=== PATIENT | male | born 1975 | race African-American/Black ===

== ENCOUNTER 2017-01-03 14:28 | Inpatient (IN) | payer OTHER ==
--- NOTE | ~2017-01-03 | PA ---
Unit #: [id number] #: [id number] Patient: JONNA GUILLERMO [id number] [facility] [address] [place] [address] [id number] I MR#: [id number] NAME: JONNA GUILLERMO. ROOM: P183 Age: 41 Sex: M Admission Date: 01/03/2017 : 1975 Date of Assessment: 01/03/2017 Attending Physician: Tee Grant M.D. Admitting Physician: Tee Grant M.D. Primary Care Physician: Generic Doctor Not In System PSYCHIATRIC ASSESSMENT DATE OF SERVICE 01/03/2017. IDENTIFYING DATA Mr. Guillermo is a 41-year-old single male, who is a resident of [place], [place], and was self-referred to the hospital on a voluntary basis. CHIEF COMPLAINT "I'm in a downhill spiral and I'm being self-destructive." HISTORY OF PRESENT ILLNESS Mr. Guillermo is a 41-year-old male, who was self-referred to the hospital reporting increasing depression, anxiety, unstable mood, and being paranoid and that he just got out of the detention in July and that his mood has been "fucked up." He reports that he relapsed on drugs in 10/2016 and states 2 weeks ago, he attempted to overdose on heroin, cocaine, and pills and stated that he is not feeling suicidal, but would not care if he in his sleep. He does report increasing depression, anxiety, agitation, irritability, poor frustration tolerance, feelings of hopelessness and helplessness, and suicidal ideations. SUBSTANCE ABUSE HISTORY The patient reports a history of alcohol, cannabis, cocaine, acid, and opioid abuse, and currently, he reports cocaine has been his drug of choice as he has used that yesterday and also has been using opioids, with the last use being a couple of weeks ago. PAST PSYCHIATRIC HISTORY The patient has had outpatient psychiatric treatment in the past, and review of the medical records indicate that currently he is on a combination of Seroquel and prazosin, but is not seeing a psychiatrist and is not taking any psychotropic medications. PAST MEDICAL HISTORY No acute or chronic medical illness. ALLERGIES No known medication allergies. PERSONAL AND SOCIAL HISTORY A 41-year-old male, who reports that he lives at home Unit #: [id number] #: [id number] Patient: JONNA GUILLERMO with his fiance and his two sons and has a fairly decent social support system. MENTAL STATUS EXAMINATION Young male, who was casually dressed with a fair personal hygiene, appears to be in no acute distress or discomfort. He was awake and alert on interaction with intact orientation to time, place, and person. His mood was anxious and depressed with a congruent affect. His speech was slow and restricted in content. His thought processes were disorganized with some looseness of associations and paranoid ideations. His insight and judgment remain significantly impaired. DIAGNOSTIC IMPRESSION Psychiatric: Major depressive disorder, recurrent, moderate, without psychotic features; opioid abuse, moderate; and cocaine abuse, moderate. Medical: None. Stressors: Moderate psychosocial stressors. TREATMENT PLAN 1. The patient has presented with a history of substance abuse and mood disorder and has been decompensating and will need inpatient hospitalization for detoxification, safety, and stabilization. We will start him on detox protocol. We will closely monitor his response and make further adjustments as needed. 2. Supportive therapy was provided to the patient. 3. Safe, structured, and nourishing environment will be provided. ESTIMATED LENGTH OF STAY 5 to 7 days. ABILITY TO HELP SELF Limited. WILLINGNESS TO HELP SELF The patient appears to be willing to help self. STRENGTHS 1. Communicative. 2. Cooperative. PROBLEMS 1. Chronic dysphoric symptoms. 2. Chronic chemical dependency. 3. Poor social support system. DISCHARGE CRITERIA This will be contingent upon the patient's ability to show resolution of his depression and anxiety and his ability to go through detox without having any significant withdrawal symptoms and his ability to stay safe to others, particularly after discharge from the hospital. Dictated by... Robert Gorman/britton TD: 01/04/2017 13:17 Unit #: [id number] #: [id number] Patient: JONNA GUILLERMO JOB #: [id number] PSYCHIATRIC ASSESSMENT X Tee Grant MD PSYCHIATRIC ASSESSMENT
--- NOTE | ~2017-01-03 | PN ---
Unit #: [id number] #: [id number] Patient: JONNA GUILLERMO [id number] [facility] [address] [place] [address] [id number] I MR#: [id number] NAME: JONNA GUILLERMO. ROOM: P183 Age: 41 Sex: M Admission Date: 01/03/2017 : 1975 Attending Physician: Tee Garnt M.D. Admitting Physician: Tee Grant M.D. Primary Care Physician: Generic Doctor Not In System [facility] PROGRESS NOTES DATE OF SERVICE: 01/06/2017 SUBJECTIVE Mr. Guillermo is a 31-year-old male who was seen today and chart was reviewed, and case was discussed with the staff. He has been anxious, withdrawn, though reports doing much better and has been reporting improvement in his depressive symptoms. Meanwhile, he has been cooperative with treatment recommendations and has been taking the medications and tolerating them fairly well. MENTAL STATUS EXAMINATION Young male who was casually dressed with fair personal hygiene, appears to be in no acute distress or discomfort. He was awake and alert on interaction with intact orientation. His mood was anxious with a congruent affect. He denies any suicidal or homicidal ideation, and also denies any auditory or visual hallucinations. His insight and judgment remain slightly impaired. TREATMENT PLAN 1. We will continue him on his current medications and treatment protocol. We will monitor his response to medication and make further adjustments as needed. 2. We will continue to follow up. Dictated by... Robert Gorman/britton TD: 01/07/2017 01:18 JOB #: [id number] Unit #: [id number] #: [id number] Patient: JONNA GUILLERMO [facility] PROGRESS NOTES Page 1 of 1 X Tee Grant MD PROGRESS NOTE
--- NOTE | ~2017-01-03 | DS ---
Unit #: [id number] #: [id number] Patient: JONNA GUILLERMO [id number] [facility] [address] [place] [address] [id number] I MR#: [id number] NAME: JONNA GUILLERMO. ROOM: P183 Age: 41 Sex: M Admission Date: 01/03/2017 : 1975 Discharge Date: 01/07/2017 Attending Physician: Tee Grant M.D. Primary Care Physician: Generic Doctor Not In System DISCHARGE SUMMARY JOB NOTE: VERIFY ADMIT AND DISCHARGE DATE. IDENTIFYING DATA Mr. Guillermo is a 41-year-old male, who is a resident of [place], [place], and was self-referred to the hospital on a voluntary basis. DISCHARGE DIAGNOSES Psychiatric: Major depressive disorder, recurrent, moderate, without psychotic features; opioid dependence, moderate and acute withdrawals; cocaine dependence, moderate. Medical: None. Stressors: Moderate psychosocial stressors. HISTORY OF PRESENT ILLNESS Please see initial psychiatric evaluation for details. PAST PSYCHIATRIC HISTORY Please see initial psychiatric evaluation for details. PAST MEDICAL HISTORY Please see initial psychiatric evaluation for details. HOSPITAL COURSE The patient was admitted to the adult psychiatric unit at [facility] and was oriented to the hospital environment. Routine p.r.n. medications were initiated, and he was started back on his home medications and medications were adjusted and Effexor and Seroquel were started to help with depression and anxiety, and opioid detox protocol was initiated as well and he was closely monitored. He was taking the medications regularly and was tolerating them fairly well and was able to show a decent and therapeutic response and as such, it was decided that he will to be discharged home and will continue treatment on an outpatient basis. DISCHARGE MEDICATIONS Effexor XR 75 mg in the morning, and Seroquel 200 mg at bedtime for mood. DISCHARGE CONDITION Stable. PROGNOSIS Fair. Unit #: [id number] #: [id number] Patient: JONNA GUILLERMO Dictated by... Tee Grant M.D. IAA/modl TD: 01/07/2017 23:09 JOB #: [id number] DISCHARGE SUMMARY Page 1 of 1 X Tee Grant MD DISCHARGE SUMMARY
--- NOTE | ~2017-01-03 | HP ---
Unit #: [id number] #: [id number] Patient: JONNA PATINO [id number] [place] [address] [id number] MR#: [id number] NAME: JONNA PATINO. ROOM: 83 Age: 41 Sex: M Admission Date: 01/03/2017 : 1975 Attending Physician: Tee Grant M.D. Admitting Physician: Tee Grant M.D. Primary Care Physician: Generic Doctor Not In System HISTORY AND PHYSICAL HISTORY OF PRESENT ILLNESS The patient is a 41-year-old male who states he is here due to depression, anxiety and suicidal ideation. PAST MEDICAL HISTORY Significant for hypertension and hyperlipidemia. PAST SURGICAL HISTORY None. ALLERGIES Patient states none. SOCIAL HISTORY Positive for smoking, alcohol and drugs. FAMILY HISTORY Noncontributory. REVIEW OF SYSTEMS CONSTITUTIONAL: No fever or chills. HEENT: Denies any sore throat, ear pain or runny nose. CARDIOVASCULAR: Denies chest pain, irregular heart rhythm or palpitations. CHEST: Denies shortness of breath or cough. No hemoptysis. GASTROINTESTINAL: Denies nausea, vomiting, diarrhea or chronic constipation. ENDOCRINE: Denies history of increased thirst or urination. No recent significant weight loss or gain. GENITOURINARY: Denies dysuria, frequency, or hematuria. SKIN: Denies any rashes. HEMATOLOGIC: Denies history of increased bleeding or bruising. MUSCULOSKELETAL: Denies any hot, swollen joints. No generalized muscle pain. NEUROLOGIC: Denies problems with vision or speech. No frequent, severe headaches. No numbness, tingling or weakness in any extremities. Denies loss of bladder or bowel control. CURRENT MEDICATIONS 1. Prazosin 1 mg p.o. q.h.s. 2. Seroquel XR 150 mg p.o. daily. PHYSICAL EXAMINATION GENERAL: Alert, oriented, in no acute distress. Unit #: [id number] #: [id number] Patient: JONNA PATINO VITAL SIGNS: Blood pressure 141/87, heart rate 79. Temperature and respirations not available. HEIGHT: Not available. WEIGHT: Not available. SKIN: Warm and dry without rash or lesion. Tattoos to the right deltoid and right and left chest. Scar to the left upper arm. Tattoo to the thoracic area. roman to the right hand. HEENT: Normocephalic. TMs not viewed. Oral and nasal passages clear. Conjunctivae clear. PERRLA. EOMs intact. NECK: Supple without lymphadenopathy or thyromegaly. HEART: Regular rate and rhythm without murmur. LUNGS: Clear. ABDOMEN: Soft, nontender, without masses or hepatosplenomegaly. : Not done. EXTREMITIES: No evidence of cyanosis, clubbing or edema. Moves all without focal deficit. NEUROLOGICAL: Grossly within normal limits. Cranial Nerves: II: Visual kearns are intact. III, IV AND : Extraocular movements are intact. Pupils are equal, round and reactive to light. V: Facial sensation is grossly normal. VII: Facial movements and expression are normal. VIII: Auditory acuity grossly intact. IX, X: Uvula is midline. Phonation is normal. XI: Patient shrugs shoulders and turns head normally. XII: Tongue protrudes in the midline. Sensory and Motor Function: Sensory and motor sensation is grossly normal. Motor: moves all extremities well. Coordination: Gait is normal. Deep Tendon Reflexes: Intact. IMPRESSION Psychiatric admission. RECOMMENDATIONS PSYCHIATRIC: Per psychiatrist. MEDICAL: No contraindication to participate in facility's activities. MEDICAL PROGNOSIS Good. Dictated by... Latonya Khoury/krys TD: 01/04/2017 18:09 JOB #: [id number] Unit #: [id number] #: [id number] Patient: JONNA PATINO HISTORY AND PHYSICAL X Julia Aguilar APR X HISTORY AND PHYSICAL
--- NOTE | ~2017-01-03 | PN ---
Unit #: [id number] #: [id number] Patient: JONNA GUILLERMO [id number] [facility] [address] [place] [address] [id number] I MR#: [id number] NAME: JONNA GUILLERMO. ROOM: P183 Age: 41 Sex: M Admission Date: 01/03/2017 : 1975 Attending Physician: Tee Grant M.D. Admitting Physician: Tee Grant M.D. Primary Care Physician: Generic Doctor Not In System [facility] PROGRESS NOTES DATE OF SERVICE: 01/04/2017 SUBJECTIVE Mr. Guillermo is a 41-year-old male, who was seen today and chart was reviewed and the case was discussed with the staff. He has been anxious, withdrawn, and rather seclusive to himself. Meanwhile, he has been exhibiting persistent depressive symptoms, though has not shown any agitation or aggression. MENTAL STATUS EXAMINATION Young male, who was casually dressed with a fair personal hygiene, appears to be in no acute distress or discomfort. He was awake and alert on interaction with intact orientation. His mood was anxious and depressed with a congruent affect. His speech was slow and goal directed. He reports having suicidal ideation, but denies any homicidal ideation. His insight and judgment remain slightly impaired. TREATMENT PLAN 1. We will continue him on his current medications and treatment protocol. We will make recommendation and adjustment in his treatment planning. 2. We will continue to follow up. Dictated by... Robert Gorman/britton TD: 01/04/2017 17:01 JOB #: [id number] [facility] PROGRESS NOTES X Tee Grant MD PROGRESS NOTE
--- NOTE | ~2017-01-03 | PN ---
Unit #: [id number] #: [id number] Patient: JONNA GUILLERMO [id number] [facility] [address] [place] [address] [id number] I MR#: [id number] NAME: JONNA GUILLERMO. ROOM: P183 Age: 41 Sex: M Admission Date: 01/03/2017 : 1975 Attending Physician: Tee Grant M.D. Admitting Physician: Tee Grant M.D. Primary Care Physician: Generic Doctor Not In System [facility] PROGRESS NOTES DATE OF SERVICE: 01/05/2017 SUBJECTIVE Mr. Guillermo is a 31-year-old male, who was seen today and chart was reviewed, and case was discussed with the staff. He has been anxious, withdrawn, though has not shown any agitation or irritability. He has been cooperative with treatment recommendations and has been taking the medications and tolerating them fairly well. MENTAL STATUS EXAMINATION Young male, who was casually dressed with fair personal hygiene, appears to be in no acute distress or discomfort. He was awake and alert on interaction with intact orientation. His mood was anxious with a congruent affect. He denies any suicidal or homicidal ideations. His insight and judgment remain slightly impaired. TREATMENT PLAN 1. We will continue him on his current medications and treatment protocol. We will monitor his response and make further adjustments as needed. 2. We will continue to follow up. Dictated by... Robert Gorman/britton TD: 01/06/2017 05:57 JOB #: [id number] [facility] PROGRESS NOTES X Tee Grant MD PROGRESS NOTE
[2017-01-06 09:35] LABS: URINE APPEARANCE CLEAR; URINE BILIRUBIN NEG (NEG); URINE BLOOD NEG (NEG); URINE COLOR YELLOW; URINE GLUCOSE NEG (NEG); URINE KETONE NEG (NEG); URINE LEUKOCYTE ESTERASE NEG (NEG); URINE NITRATE NEG (NEG); URINE PROTEIN NEG (NEG); URINE SPECIFIC GRAVITY 1.011 (1.003-1.035); URINE UROBILINOGEN 0.2 MG/DL (NEG)
[2017-01-06 09:52] LABS: AMPHETAMINE NEG (NEG); BARBITURATES NEG (NEG); BENZODIAZEPINES NEG (NEG); COCAINE POS (NEG); MARIJUANA NEG (NEG); OPIATES NEG (NEG); TRICYCLIC ANTIDEPRESSANTS POS (NEG); U METHADONE NEG (NEG)
== END 2017-01-07 10:50 | disposition home or self-care (01) | DRG 885 ==
LOC: P1E 14:28
PROVIDERS: Psychiatry & Neurology Psychiatry
PROC: HZ2ZZZZ Detoxification Services for Substance Abuse Treatment (ICD-10-PCS; principal; 2017-01-03)
DX: F33.1 Major depressive disorder, recurrent, moderate (principal); I10 Essential (primary) hypertension; F11.23 Opioid dependence with withdrawal; F14.10 Cocaine abuse, uncomplicated; E78.5 Hyperlipidemia, unspecified
CPT/HCPCS: 80307; 81003

== ENCOUNTER 2017-01-17 19:26 | Inpatient (IN) | payer OTHER ==
--- NOTE | ~2017-01-17 | DS ---
Unit #: [id number] #: [id number] Patient: JONNA GUILLERMO [id number] [facility] [address] [place] [address] [id number] I MR#: [id number] NAME: JONNA GUILLERMO ROOM: 86 Age: 41 Sex: M Admission Date: 01/17/2017 : 1975 Discharge Date: 01/23/2017 Attending Physician: Tee Grant M.D. DISCHARGE SUMMARY IDENTIFYING DATA Mr. Guillermo is a 41-year-old male who is known to us from previous encounter, was recently discharged from my care and was self-referred back to the hospital. DISCHARGE DIAGNOSES Psychiatric: Major depressive disorder, recurrent, moderate, with psychosis. Opioid dependence, moderate, in acute withdrawal. Cocaine dependence, moderate. Cannabis abuse, moderate. Medical: None. Stressors: Moderate psychosocial stressors. HISTORY OF PRESENT ILLNESS Please see initial evaluation for details. PAST PSYCHIATRIC HISTORY Please see initial evaluation for details. PAST MEDICAL HISTORY Please see initial evaluation for details. HOSPITAL COURSE The patient was [facility] and was oriented to the hospital environment. Routine p.r.n. medications were initiated and he was started back on home medications and medications were adjusted and he was started on Effexor and Seroquel, which were gradually titrated by monitoring his response. He was taking the medications regularly and was tolerating them fairly well and he was able to show a fairly decent therapeutic response with improvement in depression and anxiety and was willing to continue treatment on an outpatient basis and as such, it was decided that he will be discharged home and will continue treatment on an outpatient basis. DISCHARGE MEDICATIONS Seroquel 300 mg at bedtime for depression and Effexor 150 mg in the morning. DISCHARGE CONDITION Stable. PROGNOSIS Unit #: [id number] #: [id number] Patient: JONNA GUILLERMO Fair. Dictated by... Robert Gorman/angelal TD: 01/23/2017 06:44 JOB #: [id number] DISCHARGE SUMMARY Page 1 of 1 X Tee Grant MD DISCHARGE SUMMARY
--- NOTE | ~2017-01-17 | HP ---
Unit #: [id number] #: [id number] Patient: JONNA PATINO [id number] [place] [address] [id number] I MR#: [id number] NAME: JONNA PATINO. ROOM: P186 Age: 41 Sex: M Admission Date: 01/17/2017 : 1975 Attending Physician: Tee Grant M.D. Admitting Physician: Tee Grant M.D. Primary Care Physician: Generic Doctor Not In System HISTORY AND PHYSICAL HISTORY OF PRESENT ILLNESS The patient is a 41-year-old male who states he is here due to depression, anxiety, alcohol, heroin, cocaine abuse. PAST MEDICAL HISTORY Significant for depression. PAST SURGICAL HISTORY None. ALLERGIES None. SOCIAL HISTORY Positive for smoking, alcohol and drugs. FAMILY HISTORY Noncontributory. REVIEW OF SYSTEMS CONSTITUTIONAL: No fever or chills. HEENT: Denies any sore throat, ear pain or runny nose. CARDIOVASCULAR: Denies chest pain, irregular heart rhythm or palpitations. CHEST: Denies shortness of breath or cough. No hemoptysis. GASTROINTESTINAL: Denies nausea, vomiting, diarrhea or chronic constipation. ENDOCRINE: Denies history of increased thirst or urination. No recent significant weight loss or gain. GENITOURINARY: Denies dysuria, frequency, or hematuria. SKIN: Denies any rashes. HEMATOLOGIC: Denies history of increased bleeding or bruising. MUSCULOSKELETAL: Denies any hot, swollen joints. No generalized muscle pain. NEUROLOGIC: Denies problems with vision or speech. No frequent, severe headaches. No numbness, tingling or weakness in any extremities. Denies loss of bladder or bowel control. CURRENT MEDICATIONS 1. Seroquel 200 mg p.o. q.h.s. 2. Effexor, unknown dose. PHYSICAL EXAMINATION GENERAL: Alert, oriented, in no acute distress. Unit #: [id number] #: [id number] Patient: JONNA PATINO VITAL SIGNS: Blood pressure 113/76, heart rate 66, respirations 16. HEIGHT: 5 feet 11 inches. WEIGHT: 215 pounds. SKIN: Warm and dry without rash or lesion. Multiple tattoos. HEENT: Normocephalic. TMs not viewed. Oral and nasal passages clear. Conjunctivae clear. PERRLA. EOMs intact. NECK: Supple without lymphadenopathy or thyromegaly. HEART: Regular rate and rhythm without murmur. LUNGS: Clear. ABDOMEN: Soft, nontender, without masses or hepatosplenomegaly. : Not done. EXTREMITIES: No evidence of cyanosis, clubbing or edema. Moves all without focal deficit. NEUROLOGICAL: Grossly within normal limits. Cranial Nerves: II: Visual kearns are intact. III, IV AND : Extraocular movements are intact. Pupils are equal, round and reactive to light. V: Facial sensation is grossly normal. VII: Facial movements and expression are normal. VIII: Auditory acuity grossly intact. IX, X: Uvula is midline. Phonation is normal. XI: Patient shrugs shoulders and turns head normally. XII: Tongue protrudes in the midline. Sensory and Motor Function: Sensory and motor sensation is grossly normal. Motor: moves all extremities well. Coordination: Gait is normal. Deep Tendon Reflexes: Intact. IMPRESSION Psychiatric admission. RECOMMENDATIONS PSYCHIATRIC: Per psychiatrist. MEDICAL: No contraindications to participate in facility's activities. MEDICAL PROGNOSIS Good. Dictated by... Latonya Khoury/krys TD: 01/18/2017 19:57 JOB #: [id number] HISTORY AND PHYSICAL Page 1 of 1 X Julia Aguilar APR X HISTORY AND PHYSICAL
--- NOTE | ~2017-01-17 | PN ---
Unit #: [id number] #: [id number] Patient: JONNA GUILLERMO [id number] [facility] [address] [place] [address] [id number] I MR#: [id number] NAME: JONNA GUILLERMO. ROOM: P186 Age: 41 Sex: M Admission Date: 01/17/2017 : 1975 Attending Physician: Tee Grant M.D. Admitting Physician: Robert Gorman PROGRESS NOTES DATE OF SERVICE: 01/21/2017 SUBJECTIVE Mr. Guillermo is a 41-year-old male who was seen today and chart was reviewed, and case was discussed with the staff. He reports persistent depressive symptoms, though he states that he is feeling better than yesterday and denies any thoughts of hurting himself. Meanwhile, he has been taking medications and tolerating them fairly well with no reported side effects. MENTAL STATUS EXAMINATION Young male who was casually dressed with fair personal hygiene and appears to be in no acute distress or discomfort. He was awake and alert on interaction with intact orientation. His mood was anxious and depressed with a congruent affect. His speech is slow and goal directed. He denies any suicidal or homicidal ideations. His insight and judgment remain slightly impaired. TREATMENT PLAN 1. We will continue him on his current medications and treatment protocol. We will monitor his response to the medication and make further adjustments as needed. 2. We will continue to follow up. Dictated by... Robert Gorman/britton TD: 01/21/2017 08:26 JOB #: [id number] Unit #: [id number] #: [id number] Patient: JONNA GUILLERMOAVILA PROGRESS NOTES Page 1 of 1 X Tee Grant MD X PROGRESS NOTE
--- NOTE | ~2017-01-17 | PN ---
Unit #: [id number] #: [id number] Patient: JONNA GUILLERMO [id number] [facility] [address] [place] [address] [id number] I MR#: [id number] NAME: JONNA GUILLERMO. ROOM: P186 Age: 41 Sex: M Admission Date: 01/17/2017 : 1975 Attending Physician: Tee Grant M.D. Admitting Physician: Tee Grant M.D. Primary Care Physician: Generic Doctor Not In System [facility] PROGRESS NOTES DATE 01/22/2017 DISCUSSION Mr. Guillermo is a 41-year-old male who was seen today and chart was reviewed and case was discussed with the staff. He has been anxious, withdrawn though has not shown any agitation and has been rather calm and cooperative with treatment recommendations. He has been taking the medications and tolerating them fairly well. MENTAL STATUS EXAMINATION Young male who was casually dressed with fair personal hygiene and appears to be in no acute distress or discomfort. He was awake and alert on interaction with intact orientation. His mood was anxious with congruent affect. His speech is slow and goal-directed. He denies any suicidal or homicidal ideation. His insight and judgement remains slightly impaired. TREATMENT PLAN 1. Will continue on his current medications and treatment protocol. Will add Vistaril to help with the anxiety. 2. Will continue to follow up. Dictated by... Robert Gorman/krys TD: 01/22/2017 21:03 JOB #: [id number] Unit #: [id number] #: [id number] Patient: JONNA GUILLERMO [facility] PROGRESS NOTES Page 1 of 1 X Tee Grant MD X PROGRESS NOTE
--- NOTE | ~2017-01-17 | CO ---
Unit #: [id number] #: [id number] Patient: JONNA PATINO [id number] [place] [address] [id number] I MR#: [id number] NAME: JONNA PATINO. ROOM: P186 Age: 41 Sex: M Admission Date: 01/17/2017 : 1975 Attending Physician: Tee Grant M.D. CONSULTATION REPORT SUBJECTIVE Jonna is 41-year-old who had complained of acid reflux. He was started on Zantac 150 mg b.i.d. He reports significant improvement in his symptoms. He knows that he can continue this medication at discharge, it is OTC. Dictated by... Nu Rivera P.A.-C. for Robert Gustafson/britton TD: 01/20/2017 19:01 JOB #: [id number] CONSULTATION REPORT Page 1 of 1 X Nu Rivera CONSULTATION REPORT
--- NOTE | ~2017-01-17 | PN ---
Unit #: [id number] #: [id number] Patient: JONNA GUILLERMO [id number] [facility] [address] [place] [address] [id number] MR#: [id number] NAME: JONNA GUILLERMO. ROOM: 86 Age: 41 Sex: M Admission Date: 01/17/2017 : 1975 Attending Physician: Tee Grant M.D. Admitting Physician: Tee Grant M.D. Primary Care Physician: Generic Doctor Not In System [facility] PROGRESS NOTES DATE 01/18/2017 DISCUSSION Ms. Guillermo is a 41-year-old male who was seen today and chart was reviewed and case was discussed with the staff. He has been anxious, withdrawn and rather seclusive to himself and has been cooperative with the treatment recommendations. He has been taking the medication and tolerating them fairly well with no reported side effects. MENTAL STATUS EXAM Young male who was casually dressed with fair personal hygiene, appears to be in no acute distress or discomfort. He was awake and alert on interaction with intact orientation. His mood was anxious and depressed with congruent affect. His speech was slow and goal directed. He denies any suicidal or homicidal ideation. His insight and judgement remains slightly impaired. TREATMENT PLAN 1. We will continue him on his current treatment protocol. We will monitor his response to the medication and make further adjustments as needed. 2. We will continue to follow up. Dictated by... Robert Gorman/koby TD: 01/21/2017 23:39 JOB #: [id number] Unit #: [id number] #: [id number] Patient: JONNA GUILLERMO [facility] PROGRESS NOTES Page 1 of 1 X Tee Grant MD X PROGRESS NOTE
--- NOTE | ~2017-01-17 | PA ---
Unit #: [id number] #: [id number] Patient: JONNA PATINO [id number] [facility] [address] [place] [address] [id number] MR#: [id number] NAME: JONNA PATINO. ROOM: P186 Age: 41 Sex: M Admission Date: 01/17/2017 : 1975 Date of Assessment: Attending Physician: Tee Grant M.D. Admitting Physician: Tee Grant M.D. Primary Care Physician: Generic Doctor Not In System PSYCHIATRIC ASSESSMENT DATE OF SERVICE 01/18/2017. IDENTIFYING DATA Mr. Patino is a 41-year-old single male, who is known to me from previous encounter and is a resident of [place], [place], and was just discharged from my care a couple of weeks ago and brought himself back to the hospital as a self-referral on a voluntary basis. CHIEF COMPLAINT "I don't want to live." HISTORY OF PRESENT ILLNESS Mr. Patino is a 41-year-old male, who was transferred back to us from [facility], where he presented reporting suicidal ideations and substance abuse issues and an overdose attempt on cocaine, marijuana, and opioids, and he reports fracturing both of his hands and reports feelings of hopelessness and stated "I feel tired of living." He reports feeling paranoid and having increasing anxiety and hearing voices and has been delusional and does report increasing depression, anxiety, irritability, restlessness, feelings of hopelessness and helplessness, and suicidal ideation with intent and plan as well as auditory and visual hallucinations. SUBSTANCE ABUSE HISTORY The patient reports history of experimentation with cocaine, cannabis, and opioids, and currently, he has been on a binge of opioids, and on presentation, had a COWS of 19 indicating significant withdrawal from opioids. PAST PSYCHIATRIC HISTORY The patient has had a history of inpatient psychiatric hospitalization [facility] recently and has been diagnosed and treated for mood disorder and psychosis, and review of the medical records indicate that he was discharged on Effexor and Seroquel, but has been noncompliant with the medications and as such, has been decompensating. PAST MEDICAL HISTORY The patient's medical history is significant for fractured wrist. ALLERGIES No known medication allergies. Unit #: [id number] #: [id number] Patient: JONNA PATINO PERSONAL AND SOCIAL HISTORY A 41-year-old male, who reports that he lives at home with his partner and is unemployed and has fairly decent social support system. MENTAL STATUS EXAMINATION Young male, who was casually dressed with fair personal hygiene and appears to be in no acute distress or discomfort. He was awake and alert on interaction with intact orientation. His mood was anxious and depressed with a congruent affect. His speech was slow and goal directed. He reports having suicidal ideations as well as auditory and visual hallucinations and paranoid ideations. His insight and judgment remain significantly impaired. DIAGNOSTIC IMPRESSION Psychiatric: Major depressive disorder, recurrent, moderate, with psychosis; opioid dependence, moderate, in acute withdrawals; cocaine abuse, moderate; and cannabis abuse, moderate. Medical: None. Stressors: Moderate psychosocial stressors. TREATMENT PLAN 1. The patient has presented with a history of substance abuse, mood disorder, and psychosis and has been decompensating and will need inpatient hospitalization for safety and stabilization and detoxification. We will start him back on his home medications. We will adjust the medications and monitor response. 2. Supportive therapy was provided to the patient. 3. Safe, structured, and nourishing environment will be provided. ESTIMATED LENGTH OF STAY 5 to 7 days. ABILITY TO HELP SELF Limited. WILLINGNESS TO HELP SELF The patient appears to be willing to help self. STRENGTHS 1. Communicative. 2. Cooperative. PROBLEMS 1. Chronic dysphoric symptoms. 2. Chronic chemical dependency. 3. Poor social support system. DISCHARGE CRITERIA This will be contingent upon the patient's ability to go through detox without having any significant withdrawal symptoms and his ability to stay safe to himself and others, particularly after discharge from the hospital. Dictated by... Tee Grant M.D. IAA/modl Unit #: [id number] #: [id number] Patient: JONNA PATINO TD: 01/18/2017 13:57 JOB #: [id number] PSYCHIATRIC ASSESSMENT Page 1 of 1 X Tee Grant A MD X PSYCHIATRIC ASSESSMENT
--- NOTE | ~2017-01-17 | PN ---
Unit #: [id number] #: [id number] Patient: JONNA GUILLERMO [id number] [facility] [address] [place] [address] [id number] MR#: [id number] NAME: JONNA GUILLERMO. ROOM: P186 Age: 41 Sex: M Admission Date: 01/17/2017 : 1975 Attending Physician: Tee Grant M.D. Admitting Physician: Robert Gorman PROGRESS NOTES DATE OF SERVICE: 01/19/2017 SUBJECTIVE Mr. Guillermo is a 41-year-old male with mood disorder, who was seen today and chart was reviewed and the case was discussed with the staff. He has been anxious and withdrawn, though has not shown any agitation or irritability and has been cooperative with the treatment recommendations and has been taking the medications and tolerating them fairly well with no reported side effects. MENTAL STATUS EXAMINATION Young male, who was casually dressed with fair personal hygiene, appears to be in no acute distress or discomfort. He was awake and alert on interaction with intact orientation. His mood was anxious with a chronic affect. He denies any suicidal or homicidal ideation. His insight and judgment remain slightly impaired. TREATMENT PLAN 1. We will continue him on his current medications and treatment protocol. We will monitor his response to the medications and make further adjustments as needed. 2. We will continue to follow up. Dictated by... Robert Gorman/britton TD: 01/20/2017 14:29 JOB #: [id number] [facility] PROGRESS NOTES Page 1 of 1 X Tee Grant MD PROGRESS NOTE
[2017-01-18 13:13] LABS: THYROID STIMULATING HORMONE 0.46 uIU/ml (0.34-5.60)
[2017-01-18 13:20] LABS: FREE THYROXIN (T4) 0.8 ng/dL (0.58-1.64)
[2017-01-22 01:00] LABS: HA AB IGM (HEPPAN) Nonreactive (()); HB CORE AB IGM (HEPPAN) Nonreactive (Nonreactive); HB S AG (HEPPAN) Nonreactive (Nonreactive); HEP C AB (HEPPAN) Nonreactive (Nonreactive); HEP C AB SIGNAL TO CUTOFF 0.02 ratio (<1.00)
== END 2017-01-23 09:40 | disposition home or self-care (01) | DRG 885 ==
LOC: P1E 19:26
PROVIDERS: Psychiatry & Neurology Psychiatry
PROC: HZ2ZZZZ Detoxification Services for Substance Abuse Treatment (ICD-10-PCS; principal; 2017-01-17)
DX: F33.3 Major depressive disorder, recurrent, severe with psychotic symptoms (principal); R45.851 Suicidal ideations; F11.23 Opioid dependence with withdrawal; F14.10 Cocaine abuse, uncomplicated; F12.10 Cannabis abuse, uncomplicated; F17.210 Nicotine dependence, cigarettes, uncomplicated; K21.9 Gastro-esophageal reflux disease without esophagitis
CPT/HCPCS: 80074; 84439; 84443; 86592; 87806